=== PATIENT | female | born 1930 | race Caucasian/White ===

== ENCOUNTER → 2017-02-06 | Outpatient (CLI) | payer OTHER ==
[~2017-02-06] MED LIST: CALC200S; CALCTAB5 PO; CALCTAB65 PO; CYCL10TA6 PO; FRS/40 PO; MULTCAP PO; OXYC-57 PO; OXYC-643 PO; POTA20TA16 PO; PRAV20TA PO; SENNA LAXATIVE PO
[2017-02-06 13:48] LABS: ALT/SGPT 27 U/L (12-78); AST/SGOT 29 U/L (15-37); BLOOD UREA NITROGEN 19 mg/dl (7-18); BUN/CREATININE RATIO 19.7 (10-20); CARBON DIOXIDE 25 mmol/L (21-32); CHLORIDE 109 mmol/L (98-107); CREATININE 0.95 mg/dl (0.60-1.20); GLUCOSE 94 mg/dl (70-99); SODIUM 143 mmol/L (136-145)
[2017-02-06 13:50] LABS: CALCIUM 9.4 mg/dl (8.5-10.1)
== END | disposition home or self-care (01) ==
LOC: C.LABMFLN 11:57
PROVIDERS: ATTEND Family Medicine
DX: E78.00 Pure hypercholesterolemia, unspecified (principal); I50.30 Unspecified diastolic (congestive) heart failure; I10 Essential (primary) hypertension; E55.9 Vitamin D deficiency, unspecified

== ENCOUNTER → 2017-08-19 | Outpatient (CLI) | payer OTHER ==
[2017-08-19 18:14] LABS: HEMATOCRIT 41.8 % (37-47); MEAN CELL VOLUME 97.7 fL (80-100); MEAN CORPUSCULAR HEMOGLOBIN 32.2 pg (25-34); MEAN PLATELET VOLUME 8.9 fL (7.4-10.4); PLATELET COUNT 89 K/uL (130-400); RED BLOOD COUNT 4.28 M/uL (4.2-5.4); WHITE BLOOD COUNT 6.69 K/uL (4.8-10.8)
[2017-08-19 18:23] LABS: BLOOD UREA NITROGEN 25 mg/dl (7-18); CREATININE 1.03 mg/dl (0.60-1.20); GLUCOSE 98 mg/dl (70-99)
[2017-08-19 18:24] LABS: BUN/CREATININE RATIO 24.3 (10-20); CALCIUM 9.5 mg/dl (8.5-10.1); CARBON DIOXIDE 26 mmol/L (21-32); CHLORIDE 107 mmol/L (98-107); POTASSIUM 4.5 mmol/L (3.5-5.1); SODIUM 138 mmol/L (136-145)
== END | disposition home or self-care (01) ==
LOC: C.LABMFLN 15:21
PROVIDERS: ATTEND Family Medicine
DX: R06.09 Other forms of dyspnea (principal)

== ENCOUNTER 2017-09-11 20:14 | Emergency (ER) | payer OTHER ==
[~2017-09-11 20:14] MED LIST changes: -CHOL20009 PO; -DRGTP12 TOP; -HYDR-3983 PO; -LISI-725 PO; -MULT-506 PO; -PRVC/40 PO; -ROPI2TAB6 PO; -[UNRECOGNIZED DRUG - CODE] NAE
[2017-09-11 20:25] VITALS: TEMP 36.9; Ht 157.5 cm
--- NOTE | 2017-09-11 20:44 | EMERGENCY ROOM VISIT NOTE ---
History Report prepared by Yohan: Emanuel Caldwell Under the Supervision of: Dr. Esa Martinez M.D. First contact with patient: 20:29 Chief Complaint: SHORTNESS OF BREATH Stated Complaint: SOB,NAUSEA History of Present Illness The patient is a 87 year old female who presents to the Emergency Room evaluation of shortness of breath. She has been weak and tired for several weeks to months now. Notes associated abdominal discomfort, diarrhea, and fatigue. Was seen by PCP and [facility] several times this week and started on Bactrim, then Levaquin for possible pulmonary infection, possible UTI, possibly bacterial diarrhea. She was seen again by PCP who obtained further labs today revealing elevated Dimer. Sent to ED for a CT Scan of the chest to evaluate for pulmonary embolism. Nothing makes symptoms better nor worse. Denies trauma, runny nose, lower extremity swelling, calf pain, history of blood clots, history of kidney failure, and recent travel. Has no chest pain nor other symptoms. Source of History: patient, family Onset: several weeks ago Position: other (global) Timing: constant Associated Symptoms: + SOB, + abdominal pain Note: Pt denies runny nose, lower extremity swelling, and calf pain. Review of Systems See HPI for pertinent positives & negatives. A total of 10 systems reviewed and were otherwise negative. Social History Smoking Status: Never Smoker Marital Status: Housing Status: lives with family Current/Historical Medications Scheduled Calcitonin [place] (Miacalcin), 1 SPRAY DAPHNIE DAILY Cholecalciferol (Vitamin D), 2,000 INTER.UNIT PO DAILY Fentanyl (Fentanyl), 12 MCG TOP Q72H Furosemide (Lasix), 40 MG PO MWF Furosemide (Lasix), 80 MG PO 4XWK Lisinopril (Zestril), 20 MG PO DAILY Multivitamin (Multivitamin), 1 TAB PO DAILY Potassium Ext Rel (Klor-Con), 20 MEQ PO MWF Potassium Ext Rel (Klor-Con), 40 MEQ PO DIRECTED Pravastatin Sod (Pravastatin Sodium), 40 MG PO HS Ropinirole (Requip), 2 MG PO HS Scheduled PRN Hydrocodone/Acetaminophen 7.5MG/325MG ([place] 7.5MG/325MG), 1-2 TAB PO TID PRN for Pain Allergies Coded Allergies: Amlodipine (Unverified Allergy, Unknown, UNKNOWN, 09/11/17) NSAIDs (Unverified Allergy, Unknown, UNKNOWN, 09/11/17) Physical Exam Vital Signs Date Time Temp Pulse Resp B/P (MAP) Pulse Ox O2 Delivery O2 Flow Rate FiO2 09/11/17 22:08 86 18 132/60 96 09/11/17 21:17 81 20 141/55 96 Room Air 09/11/17 21:17 96 Room Air 09/11/17 20:59 90 09/11/17 20:25 36.9 95 20 122/64 95 Room Air Physical Exam GENERAL: Patient is elderly appearing and in no acute distress. HEENT: No acute trauma, normocephalic atraumatic, mucous membranes moist, no nasal congestion, no scleral icterus. NECK: No stridor, no adenopathy, no meningismus, trachea is midline. LUNGS: No dyspnea. Clear to auscultation and equal bilaterally. No wheeze, no rhonchi. Not short of breath. HEART: Regular rate and rhythm. No murmurs, rubs, gallops appreciated. ABDOMEN: Soft, nontender, bowel sounds positive, no masses appreciated, no peritonitis. BACK: No midline tenderness, no CVA tenderness EXTREMITIES: Normal motion all extremities, no cyanosis. Mild edema bilaterally , chronic. NEUROLOGIC: Alert and oriented, no acute motor or sensory deficits, no focal weakness, cranial nerves grossly intact. SKIN: No rash, no jaundice, no diaphoresis. Medical Decision & Procedures ER Provider Diagnostic Interpretation: Radiology results and stated below per my review and radiologist interpretation: CT ANGIOGRAPHY OF THE CHEST, PULMONARY EMBOLUS PROTOCOL CLINICAL HISTORY: Shortness of breath. COMPARISON STUDY: Chest radiograph January 10, 2013. TECHNIQUE: Following IV administration of 98 mL of Optiray-320, helical axial images of the chest were obtained utilizing the pulmonary embolus protocol. Maximal intensity projections and sagittal and coronal reformats were viewed on an independent 3D workstation. IV contrast was administered without complication. A dose lowering technique was utilized adhering to the principles of ALARA. CT DOSE: 305.48 mGy.cm FINDINGS: No pulmonary emboli are identified. There is no evidence of thoracic aortic dissection. The heart is mildly enlarged. This extensive coronary artery calcification. There is a trace pericardial effusion. There is mild esophageal wall thickening. No enlarged thoracic lymph nodes are present. There is asymmetric density within the lateral right breast. A few apparent nodules measure up to 2.2 cm. This likely reflects breast tissue. No pneumothorax or pleural effusion is present. There is no consolidation to suggest pneumonia. A few thyroid nodules are noted, including a 4 mm right upper lobe nodule shown image 245 of [id number]. No suspicious osseous lesions are present. Visualized portions of the upper abdomen demonstrate nodularity of the liver consistent with cirrhosis. Sensitivity for detection of hepatic lesions is diminished on this exam. There is a small amount of fluid overlying the liver. Gallstones within the gallbladder noted. Spleen is mildly enlarged. Upper abdominal varices are noted. There is apparent calcification within the wall of the portal vein. IMPRESSION: 1. No pulmonary emboli identified. 2. No acute intrathoracic findings. 3. Mild esophageal wall thickening which is nonspecific but may reflect esophagitis. 4. Findings consistent with cirrhosis with manifestations of portal hypertension including mild splenomegaly, upper abdominal varices and suspected calcification within the wall of the portal vein. 5. Cholelithiasis. 6. Asymmetric nodularity of the lateral right breast. This likely reflects breast tissue however nonemergent mammogram and ultrasound are recommended. Electronically signed by: Jesse Doss M.D. 09/11/2017 9:39 PM Dictated Date/Time: 09/11/2017 9:26 PM Laboratory Results 09/11/17 20:43 Red Blood Count 4.27, Mean Corpuscular Volume 93.7, Mean Corpuscular Hemoglobin 32.1, Mean Corpuscular Hemoglobin Concent 34.3, Mean Platelet Volume 9.3, Neutrophils (%) (Auto) 67.0, Lymphocytes (%) (Auto) 22.3, Monocytes (%) (Auto) 8.8, Eosinophils (%) (Auto) 1.3, Basophils (%) (Auto) 0.4, Neutrophils # (Auto) 3.57, Lymphocytes # (Auto) 1.19, Monocytes # (Auto) 0.47, Eosinophils # (Auto) 0.07, Basophils # (Auto) 0.02 09/11/17 20:43 Test 09/11/17 20:43 09/11/17 20:51 White Blood Count 5.33 K/uL (4.8-10.8) Red Blood Count 4.27 M/uL (4.2-5.4) Hemoglobin 13.7 g/dL (12.0-16.0) Hematocrit 40.0 % (37-47) Mean Corpuscular Volume 93.7 fL (80-100) Mean Corpuscular Hemoglobin 32.1 pg (25-34) Mean Corpuscular Hemoglobin Concent 34.3 g/dl (32-36) Platelet Count 76 K/uL (130-400) Mean Platelet Volume 9.3 fL (7.4-10.4) Neutrophils (%) (Auto) 67.0 % Lymphocytes (%) (Auto) 22.3 % Monocytes (%) (Auto) 8.8 % Eosinophils (%) (Auto) 1.3 % Basophils (%) (Auto) 0.4 % Neutrophils # (Auto) 3.57 K/uL (1.4-6.5) Lymphocytes # (Auto) 1.19 K/uL (1.2-3.4) Monocytes # (Auto) 0.47 K/uL (0.11-0.59) Eosinophils # (Auto) 0.07 K/uL (0-0.5) Basophils # (Auto) 0.02 K/uL (0-0.2) RDW Standard Deviation 51.3 fL (36.4-46.3) RDW Coefficient of Variation 15.3 % (11.5-14.5) Immature Granulocyte % (Auto) 0.2 % Immature Granulocyte # (Auto) 0.01 K/uL (0.00-0.02) Estimated GFR () 46.5 Estimated GFR (Non- 40.1 BUN/Creatinine Ratio 16.1 (10-20) Calcium Level 8.7 mg/dl (8.5-10.1) Total Bilirubin 1.2 mg/dl (0.2-1) Direct Bilirubin 0.4 mg/dl (0-0.2) Aspartate Amino Transf (AST/SGOT) 32 U/L (15-37) Alanine Aminotransferase (ALT/SGPT) 31 U/L (12-78) Alkaline Phosphatase 92 U/L (45-117) Troponin I 0.031 ng/ml (0-0.045) Total Protein 6.9 gm/dl (6.4-8.2) Albumin 3.2 gm/dl (3.4-5.0) Lipase 172 U/L (73-393) Bedside Hemoglobin 13.3 g/dl (12.0-16.0) Bedside Hematocrit 39 % (37-47) Bedside Sodium 136 mEq/L (135-144) Bedside Potassium 3.9 mEq/L (3.3-5.0) Bedside Chloride 100 mEq/L (101-112) Bedside Total CO2 23 mEq/l (24-31) Anion Gap 18.0 mmol/L (16-25) Bedside Blood Urea Nitrogen 18 mg/dl (7-18) Bedside Creatinine 1.2 mg/dl (0.6-1.3) Bedside Glucose (other) 92 mg/dl (70-99) Bedside Ionized Calcium (Lien) 1.13 mmol/l (1.12-1.32) Laboratory results as reviewed by me. ECG Indication: abdominal pain Rate (beats per minute): 96 Rhythm: normal sinus Findings: no acute ischemic change, no ectopy ED Course 2028: The patient was evaluated in room B9. A complete history and physical exam was performed. 2116: I requested for medical records to be sent from [facility], and her PCP for previous visits. 2145: I spoke with the patient and they do not feel well (nonspecific complaint) . 2199: Reevaluated the patient. Discussed results and discharge instructions. The patient and family verbalized understanding and agreement. The patient will follow up with her PCP. The patient is ready for discharge. Medical Decision Differential: PE, ACS, Dissection, Cholecystitis, Gallbladder disfunction, Hepatic Disfunction, Gastritis/PUD, Pancreatitis, amongst other pathologies entertained. 87 yr old female arrives from outpatient clinic for evaluation of possible PE. She has been dealing with prolonged generalized weakness, fatigue, abdominal discomfort, diarrhea and shortness of breath over last few weeks, worse last few days. Seen by PCP and ER x 2 with labs, ct abdo/pelv all done without any acute findings. Started initially on Bactrim and switched to Levaquin. She has no acute findings on her exam. Given outpatient elevated dimer with reported SHOB, despite normal otherwise, felt no choice but to do CT PE which was fortunately negative. Labs looks good, vitals stable, and she is in no distress. Her LFTs are at baseline as is her plt count. I have advised continued follow pu with PCP but at this time I see no indication for admission criteria. She feels comfortable going home. We discussed symptoms that would require RTED. Head Trauma GCS Score: 15 Medication Reconcilliation Current Medication List: was personally reviewed by me Blood Pressure Screening Patient's blood pressure: Normal blood pressure Blood pressure disposition: Did not require urgent referral Impression Primary Impression: Generalized weakness Additional Impressions: Fatigue Abdominal discomfort Shortness of breath Liver cirrhosis Thrombocytopenia Scribe Attestation The scribe's documentation has been prepared under my direction and personally reviewed by me in its entirety. I confirm that the note above accurately reflects all work, treatment, procedures, and medical decision making performed by me. Departure Information Dispostion Home / Self-Care Referrals Shay Cuevas M.D. (PCP) Patient Instructions My [facility] Additional Instructions Extensive laboratory and imaging studies were done without findings of emergency need for surgery or admission. This does not mean that nothing is wrong but there is no clear cause of your symptoms. Rest and keep well hydrated over the next few days. Return immediately if chest pain, worsening breathing difficulty, vomiting, passing out or other concerns. You have been examined and treated today on an emergency basis only. This is not a substitute for, or an effort to provide, complete comprehensive medical care. It is impossible to recognize and treat all injuries or illnesses in a single emergency department visit. It is therefore important that you follow up closely with your Primary Physician. Call as soon as possible for an appointment so you can review all labs, imaging and other testing that you had. Return to Emergency Department, call 911 or seek immediate medical attention if you feel your symptoms are worsening. Problem Qualifiers
[2017-09-11] MEDS ORDERED: OPTIRAY 320 IV PRN (20:45)
[2017-09-11 20:53] LABS: HEMOGLOBIN 13.7 g/dL (12.0-16.0); MEAN CELL VOLUME 93.7 fL (80-100); MEAN CORPUSCULAR HEMOGLOBIN 32.1 pg (25-34); MEAN CORPUSCULAR HGB CONC 34.3 g/dl (32-36); RED CELL DISTRIBUTION WIDTH CV 15.3 % (11.5-14.5); RED CELL DISTRIBUTION WIDTH SD 51.3 fL (36.4-46.3); WHITE BLOOD COUNT 5.33 K/uL (4.8-10.8)
[2017-09-11 21:04] LABS: ISTAT CREATININE 1.2 mg/dl (0.6-1.3); ISTAT IONIZED CALCIUM 1.13 mmol/l (1.12-1.32); ISTAT POTASSIUM 3.9 mEq/L (3.3-5.0)
[2017-09-11 21:15] LABS: BLOOD UREA NITROGEN 20 mg/dl (7-18); CALCIUM 8.7 mg/dl (8.5-10.1); CARBON DIOXIDE 24 mmol/L (21-32); CREATININE 1.22 mg/dl (0.60-1.20); GLUCOSE 92 mg/dl (70-99); MEAN PLATELET VOLUME 9.3 fL (7.4-10.4); PLATELET COUNT 76 K/uL (130-400); POTASSIUM 3.9 mmol/L (3.5-5.1); SODIUM 134 mmol/L (136-145)
[2017-09-11 21:17] VITALS: O2SAT 96
[2017-09-11 21:18] LABS: BASO % 0.4 %; BASO ABS # 0.02 K/uL (0-0.2); EOS % 1.3 %; EOS ABS # 0.07 K/uL (0-0.5); IG# 0.01 K/uL (0.00-0.02); LYMPH % 22.3 %; LYMPH ABS # 1.19 K/uL (1.2-3.4); MONO % 8.8 %; MONO ABS # 0.47 K/uL (0.11-0.59); NEUT ABS # 3.57 K/uL (1.4-6.5)
[2017-09-11] MEDS ORDERED: MULT-506 PO (21:35)
[2017-09-11] MEDS ORDERED: DRGTP12 TOP (21:35)
[2017-09-11] MEDS ORDERED: FRS/40 PO ×2 (21:35)
[2017-09-11] MEDS ORDERED: HYDR-3983 PO (21:35)
[2017-09-11] MEDS ORDERED: POTA20TA16 PO ×2 (21:35)
[2017-09-11] MEDS ORDERED: ROPI2TAB6 PO (21:35)
[2017-09-11] MEDS ORDERED: [UNRECOGNIZED DRUG - CODE] NAE (21:35)
[2017-09-11] MEDS ORDERED: PRVC/40 PO (21:35)
[2017-09-11] MEDS ORDERED: LISI-725 PO (21:35)
[2017-09-11] MEDS ORDERED: CHOL20009 PO (21:35)
--- NOTE | 2017-09-11 21:40 | DIAGNOSTIC IMAGING REPORT ---
CT ANGIOGRAPHY OF THE CHEST, PULMONARY EMBOLUS PROTOCOL CLINICAL HISTORY: Shortness of breath. COMPARISON STUDY: Chest radiograph January 10, 2013. TECHNIQUE: Following IV administration of 98 mL of Optiray-320, helical axial images of the chest were obtained utilizing the pulmonary embolus protocol. Maximal intensity projections and sagittal and coronal reformats were viewed on an independent 3D workstation. IV contrast was administered without complication. A dose lowering technique was utilized adhering to the principles of ALARA. CT DOSE: 305.48 mGy.cm FINDINGS: No pulmonary emboli are identified. There is no evidence of thoracic aortic dissection. The heart is mildly enlarged. This extensive coronary artery calcification. There is a trace pericardial effusion. There is mild esophageal wall thickening. No enlarged thoracic lymph nodes are present. There is asymmetric density within the lateral right breast. A few apparent nodules measure up to 2.2 cm. This likely reflects breast tissue. No pneumothorax or pleural effusion is present. There is no consolidation to suggest pneumonia. A few thyroid nodules are noted, including a 4 mm right upper lobe nodule shown image 245 of 311. No suspicious osseous lesions are present. Visualized portions of the upper abdomen demonstrate nodularity of the liver consistent with cirrhosis. Sensitivity for detection of hepatic lesions is diminished on this exam. There is a small amount of fluid overlying the liver. Gallstones within the gallbladder noted. Spleen is mildly enlarged. Upper abdominal varices are noted. There is apparent calcification within the wall of the portal vein. IMPRESSION: 1. No pulmonary emboli identified. 2. No acute intrathoracic findings. 3. Mild esophageal wall thickening which is nonspecific but may reflect esophagitis. 4. Findings consistent with cirrhosis with manifestations of portal hypertension including mild splenomegaly, upper abdominal varices and suspected calcification within the wall of the portal vein. 5. Cholelithiasis. 6. Asymmetric nodularity of the lateral right breast. This likely reflects breast tissue however nonemergent mammogram and ultrasound are recommended. Electronically signed by: Jesse Doss M.D. 09/11/2017 9:39 PM Dictated Date/Time: 09/11/2017 9:26 PM
[2017-09-11 21:51] LABS: ALBUMIN 3.2 gm/dl (3.4-5.0); TOTAL PROTEIN 6.9 gm/dl (6.4-8.2)
[2017-09-11 22:08] VITALS: BP 132/60; PULSE 86; O2SAT 96
== END 2017-09-11 22:10 | disposition home or self-care (01) ==
LOC: C.EDB 20:15
DX: R53.1 Weakness (principal); R53.83 Other fatigue; R10.9 Unspecified abdominal pain; R06.02 Shortness of breath; K74.60 Unspecified cirrhosis of liver; D69.6 Thrombocytopenia, unspecified; Z79.899 Other long term (current) drug therapy

== ENCOUNTER → 2017-09-11 | Outpatient (CLI) | payer OTHER ==
[~2017-09-11] MED LIST changes: +CHOL20009 PO; +DRGTP12 TOP; +HYDR-3983 PO; +LISI-725 PO; +MULT-506 PO; +PRVC/40 PO; +ROPI2TAB6 PO; +[UNRECOGNIZED DRUG - CODE] NAE
[2017-09-11 18:06] LABS: HEMATOCRIT 40.2 % (37-47); HEMOGLOBIN 13.7 g/dL (12.0-16.0); MEAN CORPUSCULAR HEMOGLOBIN 32.4 pg (25-34); MEAN CORPUSCULAR HGB CONC 34.1 g/dl (32-36); RED CELL DISTRIBUTION WIDTH CV 15.5 % (11.5-14.5); RED CELL DISTRIBUTION WIDTH SD 53.6 fL (36.4-46.3); WHITE BLOOD COUNT 5.47 K/uL (4.8-10.8)
[2017-09-11 18:32] LABS: MEAN PLATELET VOLUME 9.9 fL (7.4-10.4); PLATELET COUNT 84 K/uL (130-400)
[2017-09-11 18:33] LABS: BASO % 0.4 %; BASO ABS # 0.02 K/uL (0-0.2); EOS % 0.7 %; EOS ABS # 0.04 K/uL (0-0.5); IG# 0.01 K/uL (0.00-0.02); LYMPH % 19.2 %; LYMPH ABS # 1.05 K/uL (1.2-3.4); MONO % 9.3 %; MONO ABS # 0.51 K/uL (0.11-0.59); NEUT % 70.2 %; NEUT ABS # 3.84 K/uL (1.4-6.5)
[2017-09-11 18:54] LABS: ALBUMIN 3.2 gm/dl (3.4-5.0); ALKALINE PHOSPHATASE 95 U/L (45-117); ALT/SGPT 33 U/L (12-78); AST/SGOT 34 U/L (15-37); BLOOD UREA NITROGEN 19 mg/dl (7-18); CARBON DIOXIDE 25 mmol/L (21-32); CREATININE 1.25 mg/dl (0.60-1.20); GLUCOSE 90 mg/dl (70-99); LIPASE 186 U/L (73-393); POTASSIUM 4.4 mmol/L (3.5-5.1); SODIUM 134 mmol/L (136-145)
[2017-09-11 19:03] LABS: TOTAL PROTEIN 7.2 gm/dl (6.4-8.2)
[2017-09-11 19:10] LABS: HEP C IGG 13 YRS+OLDER_RFLX NEG (NEG)
== END | disposition home or self-care (01) ==
LOC: C.LABMFLN 15:32
PROVIDERS: ATTEND Family Medicine
DX: R63.4 Abnormal weight loss (principal); E86.0 Dehydration; K74.69 Other cirrhosis of liver; R06.82 Tachypnea, not elsewhere classified; E87.3 Alkalosis

== ENCOUNTER → 2017-09-25 | Outpatient (CLI) | payer OTHER ==
[~2017-09-25] MED LIST changes: -CALC200S; -CALCTAB5 PO; -CALCTAB65 PO; +CHOL20009 PO; -CYCL10TA6 PO; +DRGTP12 TOP; +HYDR-3983 PO; +LISI-725 PO; +MULT-506 PO; -MULTCAP PO; -OXYC-57 PO; -OXYC-643 PO; -PRAV20TA PO; +PRVC/40 PO; +ROPI2TAB6 PO; -SENNA LAXATIVE PO; +[UNRECOGNIZED DRUG - CODE] NAE
[2017-09-25 15:18] LABS: BLOOD UREA NITROGEN 17 mg/dl (7-18); CALCIUM 9.4 mg/dl (8.5-10.1); CARBON DIOXIDE 30 mmol/L (21-32); GLUCOSE 91 mg/dl (70-99); POTASSIUM 4.1 mmol/L (3.5-5.1); SODIUM 136 mmol/L (136-145)
== END | disposition home or self-care (01) ==
LOC: C.LABMFLN 09:16
PROVIDERS: ATTEND Family Medicine
DX: I50.30 Unspecified diastolic (congestive) heart failure (principal); R60.9 Edema, unspecified

== ENCOUNTER → 2018-04-19 | Outpatient (CLI) | payer OTHER ==
[~2018-04-19] MED LIST changes: +POTA-639 PO; -POTA20TA16 PO
[2018-04-19 18:46] LABS: BLOOD UREA NITROGEN 35 mg/dl (7-18); CALCIUM 9.5 mg/dl (8.5-10.1); CARBON DIOXIDE 35 mmol/L (21-32); CREATININE 1.09 mg/dl (0.60-1.20); GLUCOSE 97 mg/dl (70-99); POTASSIUM 4.3 mmol/L (3.5-5.1); SODIUM 136 mmol/L (136-145); TOTAL PROTEIN 6.4 gm/dl (6.4-8.2)
== END | disposition home or self-care (01) ==
LOC: C.LABMFLN 15:27
PROVIDERS: ATTEND Family Medicine
DX: R60.9 Edema, unspecified (principal); R06.82 Tachypnea, not elsewhere classified; I51.9 Heart disease, unspecified